=== PATIENT | male | born 1985 | race African-American/Black ===

== ENCOUNTER 2017-01-17 09:09 | Emergency (ER) | payer OTHER ==
[2017-01-17 09:55] LABS: #Basophils 0.1 thou/uL (0.0-0.2); #Eosinphils 0.1 thou/uL (0.0-0.7); #Lymphocytes 2.2 thou/uL (1.20-3.40); #Monocytes 0.5 thou/uL (0.11-0.59); #Neutrophils 3.2 thou/uL (1.40-6.50); %Basophils 2.2 % (0.0-1.0); %Eosinophils 2.3 % (0.0-10.0); %Lymphocytes 35.2 % (21.0-51.0); %Monocytes 8.3 % (0.0-10.0); Hematocrit 50.7 % (42.0-52.0); Mean Platelet Volume 7.8 fL (7.4-10.4); Red Blood Cell (RBC) Count 6.09 mill/uL (4.70-6.10); White Blood Cell (WBC) Count 6.2 thou/uL (4.8-10.8)
[2017-01-17 10:07] LABS: ALT (SGPT) 109 U/L (8-55); AST (SGOT) 39 U/L (5-34); Alkaline Phosphatase 68 U/L (40-150); Anion Gap 14 mmol/L (10-20); BUN (Urea Nitrogen) 17 mg/dL (8.9-20.6); Bilirubin, Total 0.5 mg/dL (0.2-1.2); Calc. Creatinine Clearance 0 mL/min (70-130); Calcium 9.2 mg/dL (7.8-10.44); Carbon Dioxide 27 mmol/L (22-29); Chloride 103 mmol/L (98-107); Estimated GFR-MDRD 84; Globulin 4.3 g/dL (2.4-3.5); Protein, Total 7.9 g/dL (6.0-8.3)
[2017-01-17 10:10] LABS: Troponin I Less than 0.010 ng/mL (< 0.028)
--- NOTE | 2017-01-17 10:11 | RAD ---
UPRIGHT PORTABLE CHEST ONE VIEW: HISTORY: A 31-year-old male with chest pain. COMPARISON: 07/08/2014 FINDINGS: Heart size is normal. The lungs are clear. IMPRESSION: No acute intrathoracic disease. POS: [facility]
--- NOTE | 2017-01-22 15:19 | EKG ---
Test Reason : Blood Pressure : / mmHG Vent. Rate : 078 BPM Atrial Rate : 078 BPM P-R Int : 132 ms QRS Dur : 074 ms QT Int : 360 ms P-R-T Axes : 027 080 025 degrees QTc Int : 410 ms Normal sinus rhythm Nonspecific T wave abnormality No STEMI Normal ECG Confirmed by OSCAR SCHWARTZ M.D. ([id number]), science editor ADELINE ARANDA ([id number]) on 01/22/2017 3:19:37 PM Referred By: LANA Confirmed By:OSCAR SCHWARTZ M.D.
== END 2017-01-17 10:35 | disposition home or self-care (01) ==
LOC: SCSER 09:09
DX: S29.011A Strain of muscle and tendon of front wall of thorax, initial encounter (principal); S46.012A Strain of muscle(s) and tendon(s) of the rotator cuff of left shoulder, initial encounter; S46.812A Strain of other muscles, fascia and tendons at shoulder and upper arm level, left arm, initial encounter; R74.0 Nonspecific elevation of levels of transaminase and lactic acid dehydrogenase [LDH]; E66.9 Obesity, unspecified; M75.42 Impingement syndrome of left shoulder; X50.9XXA Other and unspecified overexertion or strenuous movements or postures, initial encounter
CPT/HCPCS: 36415; 71010; 80053; 82553; 84484; 85025; 93005

== ENCOUNTER 2017-02-02 09:12 | Emergency (ER) | payer OTHER, SELFPAY ==
--- NOTE | 2017-02-02 13:29 | RAD ---
TWO VIEW CHEST: COMPARISON: 01/17/17. CLINICAL HISTORY: Cough. FINDINGS: There is a focal patchy left basilar opacity. The right lung is clear. Cardiac silhouette is stable . No significant interval change otherwise. IMPRESSION: Focal patchy opacity of the left lower lung zone. This may represent an area of pneumonia. Given fo brandon confluence, recommend 2-view chest as followup upon completion of treatment regimen to confirm re solution of imaging findings. CODE T POS: [facility]
== END 2017-02-02 10:12 | disposition home or self-care (01) ==
LOC: SCSER 09:12
DX: J20.9 Acute bronchitis, unspecified (principal); R03.0 Elevated blood-pressure reading, without diagnosis of hypertension; Z79.899 Other long term (current) drug therapy
CPT/HCPCS: 71020

== ENCOUNTER 2017-02-06 03:35 | Emergency (ER) | payer SELFPAY ==
[2017-02-06] MEDS ORDERED: Acetaminophen/Codeine 30-300mg Tablet ONE (04:02)
== END 2017-02-06 04:10 | disposition home or self-care (01) ==
LOC: SCSER 03:35
DX: J20.9 Acute bronchitis, unspecified (principal)
CPT/HCPCS: 99283

== ENCOUNTER 2017-02-12 01:48 | Emergency (ER) | payer OTHER, SELFPAY ==
[2017-02-12] MEDS ORDERED: Ketorolac Tromethamine 60 MG/2 ML VIAL ONE (02:06)
[2017-02-12] MEDS ORDERED: Dexamethasone 10 MG/ML VIAL ONE (02:06)
== END 2017-02-12 02:31 | disposition home or self-care (01) ==
LOC: SCSER 01:48
DX: S29.011A Strain of muscle and tendon of front wall of thorax, initial encounter (principal); X58.XXXA Exposure to other specified factors, initial encounter
CPT/HCPCS: 96372; J1100; J1885

== ENCOUNTER 2017-03-16 17:03 | Emergency (ER) | payer OTHER, SELFPAY ==
[2017-03-16 17:53] LABS: Prothrombin Time 14.4 SEC (12.0-14.7)
[2017-03-16 18:02] LABS: ALT (SGPT) 195 U/L (8-55); AST (SGOT) 82 U/L (5-34); Alkaline Phosphatase 78 U/L (40-150); Anion Gap 14 mmol/L (10-20); BUN (Urea Nitrogen) 14 mg/dL (8.9-20.6); Bilirubin, Total 0.5 mg/dL (0.2-1.2); Calc. Creatinine Clearance 0 mL/min (70-130); Calcium 9.2 mg/dL (7.8-10.44); Carbon Dioxide 30 mmol/L (22-29); Chloride 101 mmol/L (98-107); Estimated GFR-MDRD 73; Globulin 4.3 g/dL (2.4-3.5); Protein, Total 8.1 g/dL (6.0-8.3)
[2017-03-16 18:04] LABS: Troponin I 0.012 ng/mL (< 0.028)
--- NOTE | 2017-03-16 18:13 | RAD ---
CHEST TWO VIEWS: 03/16/17 HISTORY: Cough. COMPARISON: 02/02/17 study. Heart size is upper limits of normal. Mediastinal structures are unremarkable. The lungs are clear of infiltrates. IMPRESSION: No active intrathoracic disease. POS: [facility]
[2017-03-16 18:32] LABS: Band 1 % (5-11); Hematocrit 47.1 % (42.0-52.0); Mean Platelet Volume 8.1 fL (7.4-10.4); Neutrophil 39 % (42-75); Reactive Lymphocytes 4 % (0-10); Red Blood Cell (RBC) Count 5.83 mill/uL (4.70-6.10)
== END 2017-03-16 19:47 | disposition home or self-care (01) ==
LOC: SCSER 17:03
DX: J10.1 Influenza due to other identified influenza virus with other respiratory manifestations (principal); R79.89 Other specified abnormal findings of blood chemistry; N17.9 Acute kidney failure, unspecified
CPT/HCPCS: 71020; 80053; 82553; 83880; 84484; 85025; 85610; 93005; 96360; J7620

== ENCOUNTER 2018-06-14 04:36 | Inpatient (IN) | payer SELFPAY ==
[2018-06-14] MEDS ORDERED: Azithromycin 250 MG TAB ONE (05:03)
[2018-06-14] MEDS ORDERED: cefTRIAXone\\ROCEPHIN 2 GM VIAL ONE (05:19)
[2018-06-14 05:31] LABS: #Basophils 0.2 thou/uL (0.0-0.2); #Eosinphils 0.5 thou/uL (0.0-0.7); #Lymphocytes 1.3 thou/uL (1.20-3.40); #Neutrophils 3.8 thou/uL (1.40-6.50); %Basophils 2.4 % (0.0-1.0); %Eosinophils 7.2 % (0.0-10.0); %Lymphocytes 19.2 % (21.0-51.0); %Monocytes 14.5 % (0.0-10.0); %Neutrophils 56.8 % (42.0-75.0); Anisocytosis SLIGHT = 6-15 cells (100X) (0-5/hpf); Hemoglobin 15.2 g/dL (14.0-18.0); MDiff Complete? YES; Mean Corpuscular HGB CONC 30.1 g/dL (32.0-36.0); Mean Corpuscular Hemoglobin 24.2 pg (27.0-31.0); Mean Corpuscular Volume 80.4 fL (78.0-98.0); Mean Platelet Volume 8.9 fL (7.4-10.4); Platelet Count 237 thou/uL (130-400); RBC Distribution Width 14.5 % (11.5-14.5); Red Blood Cell (RBC) Count 6.26 mill/uL (4.70-6.10); White Blood Cell (WBC) Count 6.8 thou/uL (4.8-10.8)
[2018-06-14 05:40] LABS: ALT (SGPT) 126 U/L (8-55); AST (SGOT) 50 U/L (5-34); Albumin 3.7 g/dL (3.5-5.0); Alkaline Phosphatase 85 U/L (40-150); Anion Gap 12 mmol/L (10-20); BUN (Urea Nitrogen) 11 mg/dL (8.9-20.6); Bilirubin, Total 0.6 mg/dL (0.2-1.2); Calc. Creatinine Clearance 0 mL/min (70-130); Calcium 9.3 mg/dL (7.8-10.44); Carbon Dioxide 27 mmol/L (22-29); Chloride 103 mmol/L (98-107); Estimated GFR-MDRD 85; Globulin 4.6 g/dL (2.4-3.5); Glucose 112 mg/dL (70-105); Potassium 4.3 mmol/L (3.5-5.1); Protein, Total 8.3 g/dL (6.0-8.3); Sodium 138 mmol/L (136-145)
--- NOTE | 2018-06-14 08:46 | RAD ---
CHEST 1 VIEW: INDICATION: History of cough and shortness of breath. COMPARISON: Prior exam dated 03/16/2017. FINDINGS: There are low lung volumes accentuating the cardiac silhouette. The cardiac silhouette is felt to be mildly prominent. No definite consolidation, pleural effusion, or pneumothorax is evident. No acut e osseous abnormality is evident. IMPRESSION: Low lung volumes. No definite acute cardiopulmonary abnormality. POS: [facility]
[2018-06-14] MEDS ORDERED: Benzonatate 100 MG CAP PO PRN (17:18)
[2018-06-14] MEDS ORDERED: hydrALAZINE 20 MG/ML VIAL SLOW IVP PRN (17:18)
[2018-06-14] MEDS ORDERED: Ondansetron ODT 4 MG TAB PO PRN (17:18)
[2018-06-14] MEDS ORDERED: Acetaminophen 500 MG TAB PO PRN (17:18)
[2018-06-14] MEDS ORDERED: Ondansetron PF 4 MG/2 ML Vial IVP PRN (17:18)
[2018-06-14] MEDS ORDERED: Cepastat Lozenges 1 LOZ PO PRN (17:18)
[2018-06-14] MEDS ORDERED: Diabetic Tussin 200 MG/10 ML UDCUP PO PRN (17:18)
[2018-06-14] MEDS ORDERED: predniSONE 20 MG TAB PO SCH (17:30)
[2018-06-14 17:38] VITALS: BMI 40.6
--- NOTE | 2018-06-14 17:56 | HP ---
PRIMARY CARE PROVIDER: [facility]. CHIEF COMPLAINT: Cough and shortness of breath. HISTORY OF PRESENT ILLNESS: This is a 33-year-old male, who initially presented to [facility] Emergency Department [place] complaining of nonproductive cough, shortness of breath with some wheezing over the last 3 days. The patient admits to eye drainage, dry cough without documented fever or chills. The patient denies any specific exposure history, sick contacts or family members with similar symptoms. The patient denied any recent travel history, immunizations or receiving the influenza vaccination this season. The patient took hwmi-buv-owusaed Benadryl and nasal decongestants with minimal relief. The patient admits to worsening symptoms while laying flat with coughing fits with some relief sitting up. The patient states he has had similar bouts about the same time last year in the early spring. The patient denies any known history of allergies to pollens, grasses or seasonal variation. In the emergency room, the patient underwent general evaluation including chest imaging showing no acute infiltrate. The patient did receive IV azithromycin and Rocephin as well as bronchodilator therapy with DuoNeb. The patient was transferred to the observation floor for further evaluation. PAST MEDICAL HISTORY: 1. Morbid obesity. 2. Question of fatty liver. PAST SURGICAL HISTORY: Status post right retinal reattachment surgery. CURRENT MEDICATIONS: No prescription medications. Benadryl and [id number] decongestants. ALLERGIES: NO KNOWN DRUG ALLERGIES. FAMILY HISTORY: No inheritable diseases per patient report. SOCIAL HISTORY: The patient denies any tobacco, alcohol, or illicit drug use. Resides in [place], [place]. and unemployed. REVIEW OF SYSTEMS: CONSTITUTIONAL: Negative for weight loss or gain, ability to conduct usual activities. SKIN: Negative for rash, itching. EYES: Negative for double vision, pain. ENT/MOUTH: Negative for nose bleeding, neck stiffness, pain, tenderness. CARDIOVASCULAR: Negative for palpitations, dyspnea on exertion, orthopnea. RESPIRATORY: Negative for shortness of breath, wheezing, cough, hemoptysis, fever or night sweats. GASTROINTESTINAL: Negative for poor appetite, abdominal pain, heartburn, nausea, vomiting, constipation, or diarrhea. GENITOURINARY: Negative for urgency, frequency, dysuria, nocturia. MUSCULOSKELETAL: Negative for pain, swelling. NEUROLOGIC/PSYCHIATRIC: Negative for anxiety, depression. ALLERGY/IMMUNOLOGIC: Negative for skin rash, bleeding tendency. Otherwise, negative except as stated per HPI. PHYSICAL EXAMINATION: VITAL SIGNS: On admission, blood pressure 127/86, pulse 80, respiratory rate 18, temperature 98.2 degrees Fahrenheit, O2 saturation 97% on 2 L/minute by nasal cannula. GENERAL APPEARANCE: This is a 33-year-old male, alert and oriented x3, pleasant, conversant, in no acute distress. HEENT: Pupils are equal, round, reactive to light and accommodation. Extraocular muscles are intact. Right scleral icterus. Nares patent with boggy mucosa. OP is clear. No oral lesions noted. NECK: Supple. No cervical adenopathy. No thyromegaly. No carotid bruits. No JVD appreciated. Cervical spine with full active and passive range of motion. No meningeal signs noted. CHEST: Diminished breath sounds in the bases bilaterally. CARDIOVASCULAR EXAM: S1 and S2 without noted murmur, rub, or gallop. ABDOMEN: Obese with landmarks difficult to palpate due to patient's body habitus. No rebound or guarding appreciated. EXTREMITIES: Warm and dry with fair turgor. No clubbing, cyanosis, or asymmetric edema appreciated. Pulses palpable distally at the dorsalis pedis, posterior tibial, and popliteal arteries bilaterally. Capillary refill less than 2 seconds. NEUROLOGIC: Cranial nerves 2 through 12 are grossly intact. No focal or lateralizing signs appreciated. PERTINENT LAB AND X-RAY FINDINGS: Sodium 138, potassium 4.3, chloride 103, CO2 of 27, BUN 11, creatinine 1.18, estimated GFR 85, glucose 112, lactic acid level 0.9, calcium 9.3, AST 50, ALT 126, alkaline phosphatase 85. BNP less than 10. Albumin 3.7. CBC showed a white blood cell count of 6.8, hemoglobin 15, hematocrit 50, platelet count 237 with 57% neutrophils. Portable chest x-ray dated 06/14/2018 showed technically limited study with poor inspiratory effort. No acute infiltrate identified. ASSESSMENT AND PLAN: 1. Acute bronchitis. The patient will be observed on the medical floor. We will continue general pulmonary supportive management. Levaquin 500 mg IV daily. Add DuoNeb q.4 hours. Continue antitussive measures with guaifenesin and Tessalon Perles. 2. Reactive airway disease, suspected due to seasonal variation. Add prednisone 40 mg p.o. daily. Continue DuoNeb q.4 hours. 3. Elevated blood pressure. We will continue serial blood pressure monitoring. No formal diagnosis of hypertension prior to this admission. The patient may need additional followup in surveillance as an outpatient. 4. Transaminitis. Suspect secondary to fatty liver disease given patient's body habitus. We will repeat LFTs in the a.m. 5. Morbid obesity. We will offer dietary resources. Low-fat cardiac diet. 6. Prophylaxis. SCDs while in bed. Pepcid 20 mg p.o. b.i.d. check influenza panel. 7. Code status is full. Surrogate medical decision maker is the patient's spouse. Job ID: [id number]
[2018-06-14] MEDS: Famotidine 20 MG TAB PO SCH (20:22)
[2018-06-14] MEDS: guaiFENesin ER 600 MG TAB PO SCH (20:22)
[2018-06-15 04:42] LABS: Hemoglobin A1c 5.9 % (4.0-6.0)
[2018-06-15 04:56] LABS: ALT (SGPT) 129 U/L (8-55); AST (SGOT) 53 U/L (5-34); Albumin 3.8 g/dL (3.5-5.0); Alkaline Phosphatase 87 U/L (40-150); Anion Gap 11 mmol/L (10-20); BUN (Urea Nitrogen) 11 mg/dL (8.9-20.6); Bilirubin, Total 0.7 mg/dL (0.2-1.2); Calc. Creatinine Clearance 146 mL/min (70-130); Calcium 9.5 mg/dL (7.8-10.44); Carbon Dioxide 29 mmol/L (22-29); Chloride 100 mmol/L (98-107); Estimated GFR-MDRD 83; Globulin 4.8 g/dL (2.4-3.5); Glucose 151 mg/dL (70-105); Potassium 4.7 mmol/L (3.5-5.1); Protein, Total 8.6 g/dL (6.0-8.3); Sodium 135 mmol/L (136-145)
[2018-06-15 05:43] LABS: Hemoglobin 15.6 g/dL (14.0-18.0); Lymphocytes 9 % (21-51); MDiff Complete? YES; Mean Corpuscular HGB CONC 30.8 g/dL (32.0-36.0); Mean Corpuscular Hemoglobin 25.7 pg (27.0-31.0); Mean Corpuscular Volume 83.4 fL (78.0-98.0); Mean Platelet Volume 8.5 fL (7.4-10.4); Neutrophil 91 % (42-75); Platelet Count 250 thou/uL (130-400); Platelet Morphology Comment Appears Adequate; RBC Distribution Width 14.3 % (11.5-14.5); RBC Morphology Normal; Red Blood Cell (RBC) Count 6.07 mill/uL (4.70-6.10); White Blood Cell (WBC) Count 7.4 thou/uL (4.8-10.8)
[2018-06-15] MEDS ORDERED: predniSONE 20 MG TAB PO SCH (08:00)
[2018-06-15] MEDS ORDERED: methylPREDNISolone Sod Succ 40 MG VIAL IVP SCH ×2 (09:45→12:00)
[2018-06-15] MEDS: Famotidine 20 MG TAB PO SCH ×2 (10:29→21:00)
[2018-06-15] MEDS: guaiFENesin ER 600 MG TAB PO SCH ×2 (10:29→21:00)
[2018-06-15] MEDS: Loratadine 10 MG TAB PO SCH (10:29)
[2018-06-15] MEDS: methylPREDNISolone Sod Succ 40 MG VIAL IVP SCH ×2 (12:41→17:48)
--- NOTE | 2018-06-15 14:09 | RAD ---
CHEST TWO VIEWS: History: Persistent hypoxia bronchitis. Comparison: 03-16-17, 06-14-18 FINDINGS: The heart size appears slightly enlarged. Mediastinal structures are unremarkable. The lungs are tracey r of any infiltrate. IMPRESSION: Minimal cardiomegaly. POS: [facility]
--- NOTE | 2018-06-15 18:39 | PRG ---
DATE OF SERVICE: 06/15/2018 SUBJECTIVE: The patient is a 33-year-old male with past medical history significant for obesity as well as nonalcoholic fatty liver disease, who presented to the [facility] with complaints of a 3-day history of nonproductive cough, shortness of breath, and wheezing. He denied any fever or chills. The patient has been admitted with presumed acute bronchitis. He has been given multiple breathing treatments, IV Solu-Medrol, as well as IV levofloxacin. The patient states that his cough and shortness of breath have somewhat improved, however, he remains significantly hypoxic. The patient denies any chest pain, nausea, vomiting, or diarrhea. His appetite is good. OBJECTIVE: VITAL SIGNS: Blood pressure is 134/81, pulse is 83, O2 saturation has ranged today from 85% to 94% on 3 L of oxygen via nasal cannula. GENERAL: This is an obese male, sitting up in no acute distress. HEENT: Head, atraumatic and normocephalic. 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 NECK: No JVD. No carotid bruits. Trachea is midline. CV: S1 and S2. Regular rate and rhythm. No appreciable murmurs, rubs, or gallops. LUNGS: Distant breath sounds, but overall clear. I can discern no rhonchi or crackles. No wheezes. ABDOMEN: Soft, obese, nontender. Positive bowel sounds. EXTREMITIES: No lower extremity pitting edema. SKIN: Warm and dry. No apparent rashes or abrasions. LABORATORY DATA: White blood cell count 7.4, hemoglobin 15.6, hematocrit 50.6, platelet count is 250. D-dimer is 0.29. Sodium 135, potassium 4.7, chloride 100, creatinine 1.21, albumin 3.8, AST 53, ALT 129, alkaline phosphatase 87. ASSESSMENT: 1. Persistent hypoxemia despite DuoNeb, steroids, and antibiotics,questionably secondary to hypoventilation / [place]. 2. Acute bronchitis at presentation, symptomatically improved. 3. Obesity. 4. Untreated obstructive sleep apnea. 5. Nonalcoholic fatty liver disease. PLAN: As mentioned, the patient continues to desat with readings in the 80s. We will obtain a 2D echocardiogram to rule out [id number] shunt, and consult Pulmonology for further recommendations. Continue pulmonary toilet. Further recommendations based on hospital course. Job ID: [id number] MTDD
[2018-06-16] MEDS: methylPREDNISolone Sod Succ 40 MG VIAL IVP SCH ×3 (00:31→14:10)
[2018-06-16] MEDS ORDERED: Bisacodyl 10 MG SUPP PR PRN (07:34)
[2018-06-16] MEDS ORDERED: Sodium Chloride 0.65% Nasal 44 ML BOT EA NARE PRN (07:34)
[2018-06-16] MEDS ORDERED: Senokot S 8.6-50 MG TAB PO PRN (07:34)
[2018-06-16] MEDS ORDERED: Eucerin (Mineral Oil/Petrolatum,White) 30 gm Jar TOP PRN (07:34)
[2018-06-16] MEDS ORDERED: Loperamide HCl 2 MG CAP PO PRN (07:34)
[2018-06-16] MEDS ORDERED: Artificial Tears 18 DROP/0.9 ML EA EYE PRN (07:34)
[2018-06-16] MEDS: guaiFENesin ER 600 MG TAB PO SCH (09:42)
[2018-06-16] MEDS: Loratadine 10 MG TAB PO SCH (09:42)
[2018-06-16] MEDS: Famotidine 20 MG TAB PO SCH (09:42)
--- NOTE | 2018-06-16 10:49 | PDOC.PN ---
- Subjective Encounter Start Date: 06/16/18 Encounter Start Time: 09:30 -: old records requested/rev pt has cough, overall feeling better, no fever Patient seen and examined. No overnight events - Objective Resuscitation Status - Order Detail: 06/14/18 17:12 Resuscitation Status Routine Resuscitation Status: FULL: Full Resuscitation MAR Reviewed: Yes Vital Signs & Weight: Vital Signs (12 hours) Temp Pulse Resp BP Pulse Ox 06/16/18 10:27 92 16 06/16/18 08:30 97.3 F L 92 18 126/79 98 06/16/18 06:30 100 06/16/18 06:28 100 16 06/16/18 04:00 94 L 06/16/18 00:00 95 Weight Weight 267 lb I&O: 06/15/18 06/16/18 06/17/18 06:59 06:59 06:59 Intake Total 1180 480 Balance 1180 480 Result Diagrams: 06/15/18 04:15 06/15/18 04:15 Radiology Reviewed by me: Yes (chest xray reviewed) Phys Exam - Physical Examination Constitutional: NAD HEENT: PERRLA, moist MMs, sclera anicteric Neck: no JVD, supple Respiratory: no rales reduced air entry, few wheeze+ Cardiovascular: RRR, no significant murmur, no rub Gastrointestinal: soft, non-tender, no distention, positive bowel sounds Musculoskeletal: no edema, pulses present Neurological: non-focal, normal sensation, moves all 4 limbs Lymphatic: no nodes Psychiatric: normal affect, A&O x 3 Skin: no rash, normal turgor Dx/Plan (1) Acute bronchitis Code(s): J20.9 - ACUTE BRONCHITIS, UNSPECIFIED Status: Acute Qualifiers: Bronchitis organism: unspecified organism Qualified Code(s): J20.9 - Acute bronchitis, unspecified (2) Acute respiratory failure with hypoxia Code(s): J96.01 - ACUTE RESPIRATORY FAILURE WITH HYPOXIA Status: Acute (3) HILDA (obstructive sleep apnea) Code(s): G47.33 - OBSTRUCTIVE SLEEP APNEA (ADULT) (PEDIATRIC) Status: Suspected (4) Transaminitis Code(s): R74.0 - NONSPEC ELEV OF LEVELS OF TRANSAMNS & LACTIC ACID DEHYDRGNSE Status: Acute Comment: due to fatty liver (5) Morbid obesity with BMI of 40.0-44.9, adult Code(s): E66.01 - MORBID (SEVERE) OBESITY DUE TO EXCESS CALORIES; Z68.41 - BODY MASS INDEX (BMI) 40.0-44.9, ADULT Status: Chronic - Plan cont current plan of care, plan discussed w/ family, continue antibiotics, respiratory therapy * continue respiratory therapy * continue solumedrol and empiric antibiotics * monitor oxygen saturation * ambulate as tolerated * medication reviewed as below * symptomatic treatment * discussed with * will need outpt sleep study * expecting discharge soon. Review of Systems - Review of Systems Respiratory: Cough, SOB with Excertion, Wheezing. negative: Dry, Shortness of Breath, Hemoptysis, Pleuritic Pain, Sputum Cardiovascular: negative: chest pain, palpitations, orthopnea, paroxysmal nocturnal dyspnea, edema, light headedness, other Gastrointestinal: negative: Nausea, Vomiting, Abdominal Pain, Diarrhea, Constipation, Melena, Hematochezia, Other Genitourinary: negative: Dysuria, Frequency, Incontinence, Hematuria, Retention , Other Musculoskeletal: negative: Neck Pain, Shoulder Pain, Arm Pain, Back Pain, Hand Pain, Leg Pain, Foot Pain, Other Skin: negative: Rash, Lesions, Catrachito, Bruising, Other - Medications/Allergies Allergies/Adverse Reactions: Allergies Allergy/AdvReac Type Severity Reaction Status Date / Time No Known Allergies Allergy Unverified 06/14/18 17:45 Medications: Current Medications Acetaminophen (Tylenol) 1,000 mg PO Q6H PRN PRN Reason: Mild Pain (1-3) Albuterol/Ipratropium (Duoneb) 3 ml NEB [id number] Last Admin: 06/16/18 10:27 Dose: 3 ml Albuterol/Ipratropium (Duoneb) 3 ml NEB Q6H PRN PRN Reason: SOB &/or Wheezing Last Admin: 06/15/18 03:08 Dose: 3 ml Artificial Tears (Tears Naturale) 2 drop EA EYE PRN PRN PRN Reason: Dry Eyes Benzonatate (Tessalon) 100 mg PO Q6H PRN PRN Reason: Cough Bisacodyl (Dulcolax) 10 mg MO DAILYPRN PRN PRN Reason: Constipation Famotidine (Pepcid) 20 mg PO BID [facility] Last Admin: 06/16/18 09:42 Dose: 20 mg Guaifenesin (Robitussin Sf) 200 mg PO Q4H PRN PRN Reason: Cough Guaifenesin (Mucinex) 600 mg PO Q12HR [facility] Last Admin: 06/16/18 09:42 Dose: 600 mg Hydralazine HCl (Apresoline) 10 mg SLOW IVP Q4H PRN PRN Reason: SBP > 180 and HR < 70 Levofloxacin 500 mg/ Device 100 mls @ 100 mls/hr IVPB Q24HR [facility] Last Admin: 06/15/18 17:46 Dose: 100 mls Loperamide HCl (Imodium) 2 mg PO PRN PRN PRN Reason: Diarrhea/Loose Stools Loratadine (Claritin) 10 mg PO DAILY [facility] Last Admin: 06/16/18 09:42 Dose: 10 mg Methylprednisolone Sodium Succinate (Solu-Medrol) 40 mg IVP Q6HR [facility] Last Admin: 06/16/18 05:53 Dose: 40 mg Mineral Oil/White Petrolatum (Eucerin Cream) 0 gm TOP BIDPRN PRN PRN Reason: Dry Skin Ondansetron HCl (Zofran Odt) 4 mg PO Q6H PRN PRN Reason: Nausea/Vomiting Ondansetron HCl (Zofran) 4 mg IVP Q6H PRN PRN Reason: Nausea/Vomiting Senna/Docusate Sodium (Senokot S) 2 tab PO BID PRN PRN Reason: Constipation Sodium Chloride ([place] Nasal [place] 0.65%) 0 ml EA NARE QIDPRN PRN PRN Reason: Nasal Congestion Sodium Chloride (Flush - Normal Saline) 10 ml IVF Q12HR [facility] Sodium Chloride (Flush - Normal Saline) 10 ml IVF PRN PRN PRN Reason: Saline Flush Throat Lozenges (Cepastat Lozenges) 1 branden PO Q2H PRN PRN Reason: Sore Throat Last Admin: 06/15/18 03:43 Dose: 1 branden
[2018-06-16] MEDS ORDERED: Furosemide 40 MG/4 ML VIAL SLOW IVP SCH (16:00)
[2018-06-16 20:19] VITALS: BP 172/84; TEMP 97.8
--- NOTE | 2018-06-16 21:42 | DIS ---
DATE OF ADMISSION: 06/15/2018 DATE OF DISCHARGE: 06/16/2018 PRIMARY CARE PHYSICIAN: [facility] Call admission. DISCHARGE DISPOSITION: Home. PRIMARY DISCHARGE DIAGNOSES: Acute bronchitis, acute respiratory failure, hypoxia resolved, transaminitis due to fatty liver. SECONDARY DISCHARGE DIAGNOSES: Morbid obesity, obstructive sleep apnea suspected. PRIMARY PROCEDURE/OPERATION: None. RADIOLOGICAL INVESTIGATION: Echocardiography showed normal EF. Normal diastolic dysfunction. Chest x-ray unremarkable. SIGNIFICANT LABORATORY DATA: Hemoglobin 15.6, platelet 250, WBC 7.4. D-dimer 0.29. Sodium 135. Hemoglobin A1c 5.9. AST 53, ALT 129, alkaline phosphatase 83. BNP less than 10. Lactic acid 0.9. DISCHARGE MEDICATIONS: 1. Prednisone 40 mg p.o. daily for 5 days. 2. Mucinex 600 mg p.o. b.i.d. for 5 days. 3. Ventolin inhaler two puffs q.6 hourly p.r.n. 4. Levaquin 500 mg p.o. daily for 5 days. CONTRAINDICATION: None. CODE STATUS: Full code. INPATIENT AVIONICS INTEGRATION ENGINEER: Dr. Nichole. TEST RESULT PENDING ON DISCHARGE: None. ALLERGIES: NO KNOWN DRUG ALLERGIES. DISCHARGE PLAN: Posthospital, the patient will follow up with primary care physician in 1 or 2 weeks. The patient will make appointment with educator senior clinical as an outpatient basis. HOSPITAL COURSE: A 33-year-old male, who was admitted by Dr. Tello. Please see his H and P for further details. The patient was admitted because he was presented with increasing shortness of breath, cough, and wheezing. He was hypoxic on arrival. He was having acute respiratory failure with hypoxia secondary to acute bronchitis which was treated while in the hospital. Empiric antibiotic therapy, DuoNeb, Solu-Medrol and Mucinex with significant improvement in next 24 to 48 hours. By the time of discharge, he was no longer requiring any oxygen. He was ambulatory, tolerating p.o. well and he was asymptomatic. Pulmonary saw this patient because of his morbid obesity. We suspected obstructive sleep apnea and that is why we advised him to get outpatient sleep study and I will follow up with educator senior clinical. The patient is seen and examined at bedside today. He is completely asymptomatic. During this admission, echocardiography is also normal. All new medication prescription sent to his pharmacy. The patient is medically stable for discharge today. Job ID: [id number]
--- NOTE | 2018-06-16 23:03 | CON ---
DATE OF CONSULTATION: 06/16/2018 SERVICE: Pulmonary Medicine. REASON FOR CONSULT: Hypoxemia. HISTORY OF PRESENT ILLNESS: The patient is a 33-year-old male with past medical history significant for morbid obesity. He is in his usual state of health until about 3 days prior to admission. He started having increasing congestion, cough which was nonproductive and low-grade temperatures. He had myalgias. When he did bring up sputum, it was either white or pale yellow. Ultimately, he presented to the emergency department where he discovered to be hypoxemic. He was subsequently admitted to the hospital. Since he has been here, he got antibiotics and steroids. He has made a profound improvement and feels like he is essentially back to baseline. The cough is much improved albeit still present. He did not have any fevers overnight and he has no specific complaints otherwise. He is itching me to get out of here. That being said, whenever his saturations were being checked on his fingers, they were in the mid 80s. That being said, every time we check at the ear, he is in the mid 90s. Otherwise, he has absolutely no complaints. PAST MEDICAL HISTORY: 1. Morbid obesity. 2. Fatty liver disease. 3. Obstructive sleep apnea, suspected. PAST SURGICAL HISTORY: Right retinal reattachment surgery. ALLERGIES: NO KNOWN DRUG ALLERGIES. MEDICATIONS: List of his inpatient medications was reviewed and modified. FAMILY HISTORY: Noncontributory. SOCIAL HISTORY: Negative for alcohol, tobacco, or illicit drug use. He has no exposure to chemicals, dust, asbestos, or tuberculosis. Lives in [place]. He is . He is currently unemployed. REVIEW OF SYSTEMS: General, head, ears, eyes, nose, throat, cardiovascular, respiratory, GI, , musculoskeletal, neurologic, and skin is negative except as mentioned in the HPI. PHYSICAL EXAMINATION: VITAL SIGNS: Afebrile, pulse 90, blood pressure 152/88, respirations 18, saturation 97% on room air. GENERAL: The patient is awake and alert, in no apparent distress. LUNGS: There is really good air entry. Minimally prolonged expiratory phase is present. Dependent crackles are present in bibasilar regions with careful auscultation. HEART: Normal rate, regular. ABDOMEN: Soft, nontender, nondistended, bowel sounds are positive. MUSCULOSKELETAL: No cyanosis or clubbing. There is 1+ pitting in the left lower extremity and trace pitting in the right lower extremity. : No Elias. NEUROLOGIC: Grossly nonfocal. LABORATORY DATA: CBC is unremarkable. D-dimer 0.29. Basic metabolic profile is unremarkable. AST and ALT are marginally elevated. Lactate and hemoglobin A1c are negative. Blood cultures x2 and influenza are unremarkable. IMAGING: Chest x-ray demonstrates no acute cardiopulmonary abnormality. There is a generous cardiac silhouette on this portable film. There is also a widened carinal angle suggestive of possible left atrial dilation. ASSESSMENT: 1. Acute hypoxic respiratory failure, resolved. 2. Acute bronchitis, improving. 3. Minimal volume overload. DISCUSSION AND PLAN: I will give the patient one time dose of Lasix. We will convert his steroid over to p.o. From my perspective, the hypoxemia we previously witnessed was likely associated with bad data. His saturations on the ear, and the finger are widely discordant. As such, since the patient is feeling dramatically improved and says that he has no dyspnea even with exertion, I think it is reasonable to transition him out of the hospital to complete a 5-day course of steroids and antibiotic. I would like for him to undergo evaluation for sleep apnea in the outpatient setting. Unfortunately, he is currently not funded and this will be challenging to do on an elective basis. He is working hard to establish insurance. Once this occurs, I have asked for him to follow up with me in clinic. From a purely respiratory perspective, I think it is reasonable for him to be discharged. I have counseled him to return to clinic if he has increasing dyspnea that limits his activity, or cough. Job ID: [id number]
[2018-06-17] MEDS ORDERED: predniSONE 20 MG TAB PO SCH (08:00)
[2018-06-17] MEDS ORDERED: Furosemide 40 MG/4 ML VIAL SLOW IVP SCH (09:00)
== END 2018-06-16 21:19 | disposition home or self-care (01) | DRG 189 ==
LOC: SCSER 04:36 → ERHOLD 06:00 → ONC 13:31 → OBSVTOIN 06-15 17:40
PROVIDERS: ADMIT Hospitalist; ATTEND Hospitalist
DX: J96.01 Acute respiratory failure with hypoxia (principal); Z68.41 Body mass index [BMI] 40.0-44.9, adult; J20.9 Acute bronchitis, unspecified; E66.01 Morbid (severe) obesity due to excess calories; G47.33 Obstructive sleep apnea (adult) (pediatric); K76.0 Fatty (change of) liver, not elsewhere classified; Z98.890 Other specified postprocedural states
CPT/HCPCS: 36415; 71045; 71046; 80053; 83036; 83605; 83880; 85007; 85025; 85027; 85379; 87040; 87804; 93306; 94640; J0696; J1940; J1956; J2920; J7620

== ENCOUNTER 2018-09-20 23:45 | Emergency (ER) | payer SELFPAY ==
[2018-09-21] MEDS ORDERED: Ibuprofen 800 MG TAB ONE (00:13)
--- NOTE | 2018-09-21 07:40 | RAD ---
RADIOGRAPH CHEST 2 VIEWS: DATE: HISTORY: Cough and chest pain FINDINGS: There is no airspace density, pulmonary edema, pleural effusion, pneumothorax, or cardiomegaly. IMPRESSION: No acute cardiopulmonary findings.
== END 2018-09-21 00:59 | disposition home or self-care (01) ==
LOC: SCSER 23:45
DX: R07.89 Other chest pain (principal); R05 Cough
CPT/HCPCS: 71046; 93005